=== PATIENT | male | born 1975 | race Caucasian/White ===

== ENCOUNTER 2017-08-15 20:40 | Emergency (ER) | payer BC ==
[~2017-08-15] VITALS: Ht 182.9 cm; Wt 188.7 kg
[2017-08-15 20:49] VITALS: BP 138/80; Ht 182.9 cm; Wt 188.7 kg
== END 2017-08-15 23:05 | disposition home or self-care (01) ==
LOC: ED 20:40
DX: J45.901 Unspecified asthma with (acute) exacerbation (principal)
CPT/HCPCS: J1100; J7613; J7644